=== PATIENT | female | born 1985 | race African-American/Black ===

== ENCOUNTER 2022-07-05 21:25 | Emergency (ER) | payer OTHER | END 2022-07-05 23:09 | disposition home or self-care (01) | LOC: ER 21:25 | DX: S81.812A Laceration without foreign body, left lower leg, initial encounter (principal); X58.XXXA Exposure to other specified factors, initial encounter; Y93.89 Activity, other specified; Y92.59 Other trade areas as the place of occurrence of the external cause; Y99.9 Unspecified external cause status ==